=== PATIENT | male | born 1995 | race Caucasian/White ===

== ENCOUNTER 2017-11-08 16:14 | Emergency (ER) | payer BC ==
[2017-11-08 16:18] VITALS: RESP 18
[2017-11-08] MEDS ORDERED: IBUPROFEN 800 MG TAB PO ONE (16:40)
[2017-11-08] MEDS ORDERED: IBUPROFEN 200 MG TAB PO ONE (16:42)
[2017-11-08] MEDS ORDERED: IBUPROFEN 600 MG TAB PO ONE (16:42)
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
[2017-11-08 17:52] VITALS: BP 116/67; PULSE 94; TEMP 98.2; O2SAT 93
== END 2017-11-08 17:51 | disposition home or self-care (01) ==
PROC: 0HQ1XZZ Repair Face Skin, External Approach (ICD-10-PCS; principal; 2017-11-08)
DX: S01.111A Laceration without foreign body of right eyelid and periocular area, initial encounter (principal); W22.8XXA Striking against or struck by other objects, initial encounter; Y99.8 Other external cause status; Y93.55 Activity, bike riding